=== PATIENT | female | born 1960 | race Caucasian/White ===

== ENCOUNTER 2017-01-08 15:40 | Emergency (ER) | payer BC ==
[~2017-01-08] VITALS: Ht 172.7 cm; Wt 90.0 kg
[2017-01-08 15:43] VITALS: BP 154/74; PULSE 82; RESP 18; TEMP 98.4; O2SAT 96
--- NOTE | 2017-01-08 15:59 | PD ---
Physical Exam Date Seen by Provider: Jan 08, 2017 Time Seen by Provider: 15:57 Narrative 56 yr old female here with left arm shoulder dislocation. She was moving some dogs and a leash got caught on her ankle. She fell on her stomach and the dogs pulled and yanked her shoulder out of place. She rates the pain as severe with movement. She is awaiting bed placement. Data Data Last Documented VS Vital Signs Date Time Temp Pulse Resp B/P (MAP) Pulse Ox O2 Delivery O2 Flow Rate FiO2 01/08/17 15:43 98.4 82 18 154/74 (100) 96 MDM Medical Record Reviewed: Yes Supervised Visit with JOHN: No Condition: Stable Jenifer Mccabe Jan 08, 2017 15:59
--- NOTE | 2017-01-08 16:59 | RADRPT ---
EXAM DATE/TIME: 01/08/2017 16:19 [facility] COMPARISON: No previous studies available for comparison. INDICATIONS : Left shoulder pain after patient was pulled to ground today MEDICAL HISTORY : None. SURGICAL HISTORY : None. ENCOUNTER: Initial ACUITY: 1 day PAIN SCORE: 10/10 LOCATION: Left entire shoulder FINDINGS: Nondisplaced fracture proximal humerus involving surgical neck. Glenoid and acromion are intact. CONCLUSION: Humeral fracture as described above. Marco Deras MD FACR on January 08, 2017 at 16:57 Board Certified Radiologist. This report was verified electronically.
[2017-01-08] MEDS ORDERED: HYDR-3533 PO (19:37)
[2017-01-08] MEDS ORDERED: ONDANSETRON ODT 4 MG TAB PO ONE (19:45)
[2017-01-08] MEDS ORDERED: MORPHINE SULFATE 8 MG/ML INJ IM ONE (19:45)
--- NOTE | 2017-01-08 19:53 | PD ---
HPI Chief Complaint: Injury Time Seen by Provider: 19:35 Travel History International Travel<30 days: No Contact w/Intl Traveler<30days: No Traveled to known affect area: No History of Present Illness HPI 56-year-old [id number] white female presents to emergency department for evaluation of left shoulder pain after a fall. She states that she had wrapped her feet around the leash of a few dogs causing her to fall forward onto her chest and left shoulder. She states that she was holding a leash in her left hand and felt that had pulled her shoulder. She had heard and felt a pop. She was unsure whether she had a dislocation. She denies any numbness or tingling. She does feel weak due to pain. She was nauseous initially but that did resolve. She denies injury to her head, neck or back. Pain is moderate. With severe with movement of the left arm. No chest pain or shortness of breath. No injury to the trunk or abdomen. PFSH Past Medical History Medical History: Denies Significant Hx Tetanus Vaccination: > 5 Years Influenza Vaccination: No ?: Not Past Surgical History Narrative Surgical Cholecystectomy, right hip replacement, right wrist fracture Cholecystectomy: Yes Social History Alcohol Use: Yes Tobacco Use: No Substance Use: No Allergies-Medications (Allergen,Severity, Reaction): Coded Allergies: codeine (Verified Allergy, Severe, 01/08/17) chest pain penicillin G (Verified Allergy, Unknown, 01/08/17) pt unsure Reported Meds & Prescriptions Reported Meds & Active Scripts Active Lortab (Hydrocodone-Acetaminophen) 5-325 Mg Tab 1-2 Tab PO Q6H PRN 7 Days Review of Systems Except as stated in HPI: all other systems reviewed are Neg Physical Exam Narrative GENERAL: Well-developed, well-nourished in no apparent distress. Nontoxic appearing. HEAD: Normocephalic, atraumatic. EYES: Pupils equal round and reactive. Extraocular motions intact. No scleral icterus. No injection or drainage. ENT: Nose clear. Throat without erythema, tonsillar hypertrophy or exudate. Uvula midline. Airway patent. NECK: Trachea midline. Supple, nontender, moves head freely. No central bony tenderness or spasm. CARDIOVASCULAR: Regular rate and rhythm without murmurs, gallops, or rubs. RESPIRATORY: Clear to auscultation. Breath sounds equal bilaterally. No wheezes , rales, or rhonchi. GASTROINTESTINAL: Abdomen soft, non-tender, nondistended. No hepato-splenomegaly , or palpable masses. No guarding. EXTREMITIES: No clubbing, cyanosis, or edema. Examination left upper extremity reveals pain to the glenohumeral joint with a joint effusion. She has global decreased range of motion due to pain. There is no skin breakdown. No pain in the clavicle, elbow, wrist or hand. She has intact median/ulnar/renal nerves. The right upper sternal as well as lower extremity is are without localizing bony tenderness or deformity. BACK: Nontender without deformity. No flank tenderness. NEUROLOGICAL: Awake, alert and oriented x 3 .Cranial nerves grossly intact. Motor and sensory grossly within normal limits. Normal speech. Data Data Last Documented VS Vital Signs Date Time Temp Pulse Resp B/P (MAP) Pulse Ox O2 Delivery O2 Flow Rate FiO2 01/08/17 15:43 98.4 82 18 154/74 (100) 96 Orders Orders Shoulder, Limited(2vws) (01/08/17 15:59) Morphine Inj (Morphine Inj) (01/08/17 19:45) Ondansetron Odt (Zofran Odt) (01/08/17 19:45) Splint Or Brace Apply/Monitor (01/08/17 19:35) [facility] Medical Decision Making Medical Screen Exam Complete: Yes Emergency Medical Condition: Yes Medical Record Reviewed: Yes Interpretation(s) Last 24 hours Impressions Shoulder X-Ray 01/08/17 1559 Signed Impressions: Service Date/Time: Sunday, January 08, 2017 16:19 - CONCLUSION: Humeral fracture as described above. Marco Deras MD FACR Differential Diagnosis MDM: High Differential diagnoses: Fracture, sprain, strain, dislocation, contusion, neurovascular injury Narrative Course X-ray of the left shoulder reveals a comminuted intra-articular fracture the proximal humeral head. Patient is already in a sling. We will add a swath component with a 6 inch Jeff wrap. Patient's given 8 mg of morphine IM, Zofran 4 mg by mouth. This is left humeral head fracture Diagnosis Primary Impression: Fracture of humeral head, left, closed Qualified Codes: S42.292A - Other displaced fracture of upper end of left humerus, initial encounter for closed fracture Referrals: Allan Mac MD 1 week Patient Instructions: General Instructions Departure Forms: Tests/Procedures, Work Release Special Instructions: No use of the left arm until released by orthopedics. Additional Instructions: Rest. Ice. Sling and swath. Lortab for pain. Follow-up with orthopedist next week. Return to the ER for emergencies. Med/Other Pt SpecificInfo: Prescription(s) given Scripts Hydrocodone-Acetaminophen (Lortab) 5-325 Mg Tab 1-2 TAB PO Q6H Y for PAIN for 7 Days, TAB 0 Refills Prov: Beatriz Pollack MD 01/08/17 Disposition: 01 DISCHARGE HOME Condition: Stable Henri Sauceda Jan 08, 2017 19:53
[2017-01-08 20:05] VITALS: BP 125/73
== END 2017-01-08 20:25 | disposition home or self-care (01) ==
LOC: NEPD 15:40
DX: S42.292A Other displaced fracture of upper end of left humerus, initial encounter for closed fracture (principal); M25.412 Effusion, left shoulder; W18.39XA Other fall on same level, initial encounter; Y93.K1 Activity, walking an animal
CPT/HCPCS: 73030; 96372; 99284; J2270